=== PATIENT | male | born 1965 | race Asian ===

== ENCOUNTER → 2024-03-17 09:58 | Outpatient (REF) | payer BC, SELFPAY | LOC: RAD 09:58 | PROVIDERS: ATTENDING PHYSICIAN Specialist; FAMILY PHYSICIAN Internal Medicine | DX: N20.0 Calculus of kidney (principal) | CPT/HCPCS: 74018 ==

== ENCOUNTER → 2024-10-27 08:46 | Outpatient (REF) | payer BC, SELFPAY | LOC: RCS 08:46 | PROVIDERS: ATTENDING PHYSICIAN Internal Medicine; FAMILY PHYSICIAN Internal Medicine | DX: R00.2 Palpitations (principal); R42 Dizziness and giddiness; R55 Syncope and collapse | CPT/HCPCS: 93017 ==

== ENCOUNTER → 2024-11-27 09:28 | Outpatient (REF) | payer BC, SELFPAY | LOC: RAD 09:28 | PROVIDERS: ATTENDING PHYSICIAN Internal Medicine; FAMILY PHYSICIAN Internal Medicine | DX: R94.39 Abnormal result of other cardiovascular function study (principal) | CPT/HCPCS: 75574; Q9967 ==